=== PATIENT | male | born 1960 | race Caucasian/White ===

== ENCOUNTER 2016-05-22 21:06 | Emergency (ER) | payer BC ==
[2016-05-22] MEDS ORDERED: Aspirin Low Dose CHEW TAB* 81 MG PO ONE (23:54)
[2016-05-23 00:48] LABS: Albumin 4.4 g/dL (3.2-5.2); Calcium 9.5 mg/dL (8.6-10.3); EGFR African American 116.1 (>60); EGFR Non-African American 90.2 (>60); Globulin 2.8 g/dL (2-4); Magnesium 2.2 mg/dL (1.9-2.7); Potassium 3.6 mmol/L (3.5-5.0); Total Protein 7.2 g/dL (6.4-8.9)
--- NOTE | 2016-05-23 00:52 | ED ---
Burt Sanford Salem, scribed for Jose L Gurrola MD on 05/23/16 at 0046 . HPI Chest Pain - HPI Summary HPI Summary: Patient is a 55 y/o male who presents to the ED with sharp CP localized over his mid-sternum since approximately an hour ago. He has had similar pain in the past, but of lower severity. He states the pain lasted for approximately half an hour. He also states his blood pressure has been elevated these past few days , even hitting 209/100s. Pt reports he was out of town and did not call his PCP about elevated BP. PMHx of HTN. - History of Current Complaint Chief Complaint: EDChestPainROMI Time Seen by Provider: 05/22/16 23:47 Hx Obtained From: Patient Onset/Duration: Started Minutes Ago, Resolved Timing: Constant Initial Severity: Moderate Current Severity: Moderate Pain Intensity: 1 Pain Scale Used: 0-10 Numeric Chest Pain Location: Mid Sternal Chest Pain Radiates: No Character: Sharp/Stabbing Aggravating Factor(s): Nothing Alleviating Factor(s): Nothing Associated Signs and Symptoms: Positive: Chest Pain - Allergy/Home Medications Allergies/Adverse Reactions: Allergies Allergy/AdvReac Type Severity Reaction Status Date / Time No Known Allergies Allergy Verified 05/22/16 21:16 PMH/Surg Hx/FS Hx/Imm Hx Cardiovascular History: Reports: Hx Hypertension Infectious Disease History: No Infectious Disease History: Denies: Traveled Outside the [place] in Last 30 Days - Family History Known Family History: Positive: Hypertension, Other - CVA. - Social History Alcohol Use: Occasionally Substance Use Type: Reports: None Smoking Status (MU): Never Smoked Tobacco Review of Systems Positive: Other - High BP. . Negative: Fever Positive: Chest Pain - Mid-sternum. All Other Systems Reviewed And Are Negative: Yes Physical Exam Triage Information Reviewed: Yes Vital Signs On Initial Exam: Initial Vitals Temp Pulse Resp BP Pulse Ox 98.2 F 85 16 158/84 98 05/22/16 21:12 05/22/16 21:12 05/22/16 21:12 05/22/16 21:12 05/22/16 21:12 Vital Signs Reviewed: Yes Appearance: Positive: Well-Appearing, No Pain Distress Skin: Positive: Warm Head/Face: Positive: Normal Head/Face Inspection Eyes: Positive: LISANDRO ENT: Positive: Hearing grossly normal Neck: Positive: Supple Respiratory/Lung Sounds: Positive: Clear to Auscultation, Breath Sounds Present Cardiovascular: Positive: RRR Abdomen Description: Positive: Nontender, Soft Bowel Sounds: Positive: Present Musculoskeletal: Positive: Strength/ROM Intact Neurological: Positive: Sensory/Motor Intact, Alert, Oriented to Person Place, Time - [place] Coma Scale Coma Scale Total: 15 Diagnostics - Vital Signs Vital Signs Temp Pulse Resp BP Pulse Ox 05/22/16 23:14 98.2 F 73 15 129/85 100 05/22/16 22:13 97.9 F 72 15 142/78 100 05/22/16 21:12 98.2 F 85 16 158/84 98 - Laboratory Lab Results: Lab Results 05/23/16 05/23/16 05/23/16 Range/Units 00:20 00:20 00:20 INR (Anticoag Therapy) 0.93 (0.89-1.11) Sodium 139 (133-145) mmol/L Potassium 3.6 (3.5-5.0) mmol/L Chloride 104 (101-111) mmol/L Carbon Dioxide 27 (22-32) mmol/L Anion Gap 8 (2-11) mmol/L BUN 15 (6-24) mg/dL Creatinine 0.88 (0.67-1.17) mg/dL Est GFR ( Amer) 116.1 (>60) Est GFR (Non-Af Amer) 90.2 (>60) BUN/Creatinine Ratio 17.0 (8-20) Glucose 98 (70-100) mg/dL Lactic Acid 0.7 (0.5-2.0) mmol/L Calcium 9.5 (8.6-10.3) mg/dL Magnesium 2.2 (1.9-2.7) mg/dL Total Bilirubin 1.00 (0.2-1.0) mg/dL AST 16 (13-39) U/L ALT 14 (7-52) U/L Alkaline Phosphatase 59 (34-104) U/L Troponin I 0.00 (<0.04) ng/mL Total Protein 7.2 (6.4-8.9) g/dL Albumin 4.4 (3.2-5.2) g/dL Globulin 2.8 (2-4) g/dL Albumin/Globulin Ratio 1.6 (1-3) Result Diagrams: 05/23/16 00:20 05/23/16 00:20 Lab Statement: Any lab studies that have been ordered have been reviewed, and results considered in the medical decision making process. - Radiology CXR Radiology Interpretation Completed By: ED Physician - Negative., Radiologist - See EMR pending radiology reading. - EKG 2117 EKG Interpretation: Sinus rhythm @ [address] abnormalities. Re-Evaluation - Re-Evaluation First Eval Re-Evaluation Time: 04:05 Change: Improved Comment: Informed pt of troponin results. Chest Pain Course/Dx - Course Course Of Treatment: 55 y/o male presents with sharp CP over the mid-sternum. He also reports hx of HTN. Pt given ASA 324mg in ED. EKG reveals sinus rhythm @ [address] abnormalities. CXR was negative. Both troponin 0.00. Pt will be discharged. - Diagnoses Provider Diagnoses: Chest pain Discharge - Discharge Plan Condition: Stable Disposition: HOME Patient Education Materials: Chest Pain (ED) Referrals: [facility] [place] PHYSICIAN REFERRAL [Outside] Additional Instructions: Follow up with [facility] [place] referral. The documentation as recorded by the Burt gambino Salem accurately reflects the service I personally performed and the decisions made by , Jose L Gurrola MD.
[2016-05-23 00:55] LABS: Hematocrit 42 % (42-52); Hemoglobin 14.1 g/dl (14.0-18.0); Mean Corpuscular HGB Conc 34 g/dl (31-36); Mean Corpuscular Hemoglobin 30 pg (27-31); Mean Corpuscular Volume 89 fL (80-94); Mean Platelet Volume 8 um3 (7.4-10.4); Red Blood Count 4.68 10^6/ul (4.0-5.4); Red Cell Distribution Width 13 % (10.5-15)
[2016-05-23 04:22] VITALS: BP 137/84
--- NOTE | 2016-05-23 07:50 | RAD ---
INDICATION: Chest pain. COMPARISON: There are no prior studies available for comparison. TECHNIQUE: Dual-energy PA and lateral views of the chest were obtained. FINDINGS: The heart is within normal limits in size. Mediastinal and hilar contours appear within normal limits. The lungs are clear. No pleural effusion or pneumothorax is seen. IMPRESSION: NO EVIDENCE FOR ACTIVE CARDIOPULMONARY DISEASE.
== END 2016-05-23 04:23 | disposition home or self-care (01) ==
LOC: ED 21:06
DX: R07.9 Chest pain, unspecified (principal); R03.0 Elevated blood-pressure reading, without diagnosis of hypertension; Z86.79 Personal history of other diseases of the circulatory system
CPT/HCPCS: 36415; 71020; 80053; 83605; 83735; 84484; 85025; 85610; 93005; 99283; A9270-GY

== ENCOUNTER 2016-08-19 13:58 | Emergency (ER) | payer BC ==
[2016-08-19] MEDS: NS 0.9% 1000 ML* 3,000 ML IV ONE ×3 (14:45→16:29)
[2016-08-19 14:57] LABS: Hematocrit 40 % (42-52); Hemoglobin 13.1 g/dl (14.0-18.0); Mean Corpuscular HGB Conc 33 g/dl (31-36); Mean Corpuscular Hemoglobin 30 pg (27-31); Mean Corpuscular Volume 92 fL (80-94); Mean Platelet Volume 8 um3 (7.4-10.4); Red Blood Count 4.33 10^6/ul (4.0-5.4); Red Cell Distribution Width 13 % (10.5-15); White Blood Count 8.7 10^3/ul (3.5-10.8)
[2016-08-19 15:11] LABS: ALT 13 U/L (7-52); AST 17 U/L (13-39); Albumin 4.2 g/dL (3.2-5.2); Alkaline Phosphatase 43 U/L (34-104); Anion Gap 8 mmol/L (2-11); BUN/Creatinine Ratio 19.6 (8-20); Blood Urea Nitrogen 20 mg/dL (6-24); C Reactive Protein < 1.00 mg/L (< 5.00); CO2 Carbon Dioxide 23 mmol/L (22-32); Chloride 100 mmol/L (101-111); Creatine Kinase 122 U/L (10-223); EGFR African American 97.9 (>60); EGFR Non-African American 76.1 (>60); Globulin 2.5 g/dL (2-4); Glucose 134 mg/dL (70-100); Potassium 3.4 mmol/L (3.5-5.0); Sodium 131 mmol/L (133-145); Total Protein 6.7 g/dL (6.4-8.9)
[2016-08-19 16:36] LABS: Urine Bilirubin Negative (Negative); Urine Glucose Negative (Negative); Urine Nitrite Negative (Negative)
--- NOTE | 2016-08-19 16:49 | ED ---
Burt Sanford Salem, scribed for Arian Abreu MD on 08/19/16 at 1421 . Syncope/Near Syncope - HPI Summary HPI Summary: Patient is a 55 y/o M who presents to the ED with near syncope approximately 1: 30hours ago. He states that he was working outside renovating a porch. He reports severe diaphoresis and nausea, but denies fever, chills, CP, SOB, V/D, palpations, abd pain, or urinary symptoms. Pt reports a hx of dehydration. PMHx significant for HTN and takes 3 medication for it. He states he had 4 beers last night. - History Of Current Complaint Chief Complaint: EDSyncope Time Seen by Provider: 08/19/16 14:19 Hx Obtained From: Patient Onset/Duration: Gradual Onset, Lasting Minutes, Lasting Hours, Still Present Context: Witnessed Activity At Onset: Exertion Associated Head Trauma: No Aggravating Factor(s): Nothing Alleviating Factor(s): Nothing Associated Signs And Symptoms: Diaphoresis, Other - Near syncope. Nausea. - Allergies/Home Medications Allergies/Adverse Reactions: Allergies Allergy/AdvReac Type Severity Reaction Status Date / Time No Known Allergies Allergy Verified 05/22/16 21:16 Home Medications: Home Medications Losartan TAB* [Cozaar TAB*] 08/19/16 [History] Metoprolol Tartrate TAB* [Lopressor TAB*] 08/19/16 [History Confirmed 08/19/16] amLODIPine TAB* [Norvasc 5 mg TAB*] 08/19/16 [History] PMH/Surg Hx/FS Hx/Imm Hx Cardiovascular History: Reports: Hx Hypertension Infectious Disease History: Denies: Traveled Outside the [place] in Last 30 Days - Family History Known Family History: Positive: Hypertension, Other - CVA. Negative: Cardiac Disease - Social History Alcohol Use: Occasionally Hx Substance Use: No Substance Use Type: Reports: None Hx Tobacco Use: No Smoking Status (MU): Never Smoked Tobacco Review of Systems Positive: Skin Diaphoresis. Negative: Fever, Chills Negative: Palpitations, Chest Pain Negative: Shortness Of Breath Positive: Nausea. Negative: Abdominal Pain, Vomiting, Diarrhea Negative: Syncope - Near syncope. All Other Systems Reviewed And Are Negative: Yes Physical Exam - Summary Physical Exam Summary: The patient is well-nourished in no acute distress and in no acute pain. The skin is pale and cool to touch. Decreased skin trugor. HEENT: The head is normocephalic and atraumatic. The pupils are equal and reactive. The conjunctivae are clear and without drainage. Nares are patent and without drainage. Mouth reveals dry mucous membranes and the throat is without erythema and exudate. The external ears are intact. The ear canals are patent and without drainage. The tympanic membranes are intact. Neck is supple with full range of motion and non-tender. There is no neck vein distension. Respiratory: Chest is non-tender. Lungs are clear to auscultation and breath sounds are symmetrical and equal. Cardiovascular: Heart is regular rate and rhythm. There is no murmur or rub auscultated. There is no peripheral edema and pulses are symmetrical and equal. Abdomen: The abdomen is soft and non-tender. There are normal bowel sounds heard in all four quadrants and there is no organomegaly palpated. Musculoskeletal: There is no back pain noted. Extremities are non-tender with full range of motion. There is good capillary refill, in 2 seconds. There is no peripheral edema or calf tenderness elicited. Neurological: Patient is alert and oriented to person, place and time. The patient has symmetrical motor strength in all four extremities. Psychiatric: The patient has an appropriate affect and does not exhibit any anxiety or depression. Triage Information Reviewed: Yes Vital Signs On Initial Exam: Initial Vitals Temp Pulse Resp BP Pulse Ox 97.1 F 59 18 147/69 100 08/19/16 14:03 08/19/16 14:03 08/19/16 14:03 08/19/16 14:03 08/19/16 14:03 Vital Signs Reviewed: Yes Diagnostics - Vital Signs Vital Signs Temp Pulse Resp BP Pulse Ox 08/19/16 14:03 97.1 F 59 18 147/69 100 - Laboratory Lab Results: Lab Results 08/19/16 08/19/16 08/19/16 Range/Units 14:45 14:45 14:45 WBC 8.7 (3.5-10.8) 10^3/ul RBC 4.33 (4.0-5.4) 10^6/ul Hgb 13.1 L (14.0-18.0) g/dl Hct 40 L (42-52) % MCV 92 (80-94) fL MCH 30 (27-31) pg MCHC 33 (31-36) g/dl RDW 13 (10.5-15) % Plt Count 201 (150-450) 10^3/ul MPV 8 (7.4-10.4) um3 Neut % (Auto) 80.8 (38-83) % Lymph % (Auto) 12.7 L (25-47) % [place] % (Auto) 5.7 (1-9) % Eos % (Auto) 0.5 (0-6) % Baso % (Auto) 0.3 (0-2) % Absolute Neuts (auto) 7.0 (1.5-7.7) 10^3/ul Absolute Lymphs (auto) 1.1 (1.0-4.8) 10^3/ul Absolute Monos (auto) 0.5 (0-0.8) 10^3/ul Absolute Eos (auto) 0 (0-0.6) 10^3/ul Absolute Basos (auto) 0 (0-0.2) 10^3/ul Absolute Nucleated RBC 0 10^3/ul Nucleated RBC % 0 INR (Anticoag Therapy) 0.95 (0.89-1.11) Sodium 131 L (133-145) mmol/L Potassium 3.4 L (3.5-5.0) mmol/L Chloride 100 L (101-111) mmol/L Carbon Dioxide 23 (22-32) mmol/L Anion Gap 8 (2-11) mmol/L BUN 20 (6-24) mg/dL Creatinine 1.02 (0.67-1.17) mg/dL Est GFR ( Amer) 97.9 (>60) Est GFR (Non-Af Amer) 76.1 (>60) BUN/Creatinine Ratio 19.6 (8-20) Glucose 134 H (70-100) mg/dL Lactic Acid (0.5-2.0) mmol/L Calcium 9.0 (8.6-10.3) mg/dL Total Bilirubin 1.60 H (0.2-1.0) mg/dL AST 17 (13-39) U/L ALT 13 (7-52) U/L Alkaline Phosphatase 43 (34-104) U/L Total Creatine Kinase 122 (10-223) U/L Troponin I 0.00 (<0.04) ng/mL C-Reactive Protein < 1.00 (< 5.00) mg/L Total Protein 6.7 (6.4-8.9) g/dL Albumin 4.2 (3.2-5.2) g/dL Globulin 2.5 (2-4) g/dL Albumin/Globulin Ratio 1.7 (1-3) Urine Color Urine Appearance Urine pH (5-9) Ur Specific [place] (1.010-1.030) Urine Protein (Negative) Urine Ketones (Negative) Urine Blood (Negative) Urine Nitrate (Negative) Urine Bilirubin (Negative) Urine Urobilinogen (Negative) Ur Leukocyte Esterase (Negative) Urine Glucose (Negative) 08/19/16 08/19/16 Range/Units 14:45 16:22 WBC (3.5-10.8) 10^3/ul RBC (4.0-5.4) 10^6/ul Hgb (14.0-18.0) g/dl Hct (42-52) % MCV (80-94) fL MCH (27-31) pg MCHC (31-36) g/dl RDW (10.5-15) % Plt Count (150-450) 10^3/ul MPV (7.4-10.4) um3 Neut % (Auto) (38-83) % Lymph % (Auto) (25-47) % [place] % (Auto) (1-9) % Eos % (Auto) (0-6) % Baso % (Auto) (0-2) % Absolute Neuts (auto) (1.5-7.7) 10^3/ul Absolute Lymphs (auto) (1.0-4.8) 10^3/ul Absolute Monos (auto) (0-0.8) 10^3/ul Absolute Eos (auto) (0-0.6) 10^3/ul Absolute Basos (auto) (0-0.2) 10^3/ul Absolute Nucleated RBC 10^3/ul Nucleated RBC % INR (Anticoag Therapy) (0.89-1.11) Sodium (133-145) mmol/L Potassium (3.5-5.0) mmol/L Chloride (101-111) mmol/L Carbon Dioxide (22-32) mmol/L Anion Gap (2-11) mmol/L BUN (6-24) mg/dL Creatinine (0.67-1.17) mg/dL Est GFR ( Amer) (>60) Est GFR (Non-Af Amer) (>60) BUN/Creatinine Ratio (8-20) Glucose (70-100) mg/dL Lactic Acid 3.9 H* (0.5-2.0) mmol/L Calcium (8.6-10.3) mg/dL Total Bilirubin (0.2-1.0) mg/dL AST (13-39) U/L ALT (7-52) U/L Alkaline Phosphatase (34-104) U/L Total Creatine Kinase (10-223) U/L Troponin I (<0.04) ng/mL C-Reactive Protein (< 5.00) mg/L Total Protein (6.4-8.9) g/dL Albumin (3.2-5.2) g/dL Globulin (2-4) g/dL Albumin/Globulin Ratio (1-3) Urine Color Straw Urine Appearance Clear Urine pH 7.0 (5-9) Ur Specific [place] 1.006 L (1.010-1.030) Urine Protein Negative (Negative) Urine Ketones Negative (Negative) Urine Blood Negative (Negative) Urine Nitrate Negative (Negative) Urine Bilirubin Negative (Negative) Urine Urobilinogen Negative (Negative) Ur Leukocyte Esterase Negative (Negative) Urine Glucose Negative (Negative) Result Diagrams: 08/19/16 14:45 08/19/16 14:45 Diagnostic Studies Comment: Lactic acid: 3.9 Lab Statement: Any lab studies that have been ordered have been reviewed, and results considered in the medical decision making process. - EKG 1417 EKG Interpretation: NSR @ 68bpm. PRWP. No STEMI. Re-Evaluation - Re-Evaluation First Eval Re-Evaluation Time: 16:39 Comment: Reviewed labs with pt. Pt is feeling much better now. Course/Dx Course Of Treatment: 55 y/o M presents with near syncope approximately 1: 30hours ago. He reports severe diaphoresis and nausea, but denies fever, chills , CP, SOB, V/D, palpations, abd pain, or urinary symptoms. Pt received fluids in ED course. EKG shows NSR @ 68bpm. PRWP. No STEMI. Pt is stable and will be DC 'd. - Diagnoses Differential Diagnosis/HQI/PQRI: Positive: Hypovolemia, Metabolic Reaction Provider Diagnoses: Near syncope, Heat exhaustion, Anemia, Dehydration Discharge - Discharge Plan Condition: Stable Disposition: HOME Patient Education Materials: Near Syncope (ED), Heat Exhaustion (ED), Anemia ( ED), Dehydration (ED) Referrals: [facility] [place] PHYSICIAN REFERRAL [Outside] Additional Instructions: Please follow up with [facility] [place] referral to have your blood count checked. The documentation as recorded by the Burt gambino Salem accurately reflects the service I personally performed and the decisions made by Brady bishop Drew, MD.
[2016-08-19 17:27] VITALS: BP 139/78
== END 2016-08-19 17:24 | disposition home or self-care (01) ==
LOC: ED 13:58
DX: R55 Syncope and collapse (principal); T67.5XXA Heat exhaustion, unspecified, initial encounter; D64.9 Anemia, unspecified; E86.0 Dehydration; R11.0 Nausea; R61 Generalized hyperhidrosis; X30.XXXA Exposure to excessive natural heat, initial encounter; Y93.89 Activity, other specified; Y92.9 Unspecified place or not applicable
CPT/HCPCS: 36415; 80053; 81003; 82550; 83605; 84484; 85025; 85610; 86140; 93005; 96360; 99283